=== PATIENT | male | born 2000 | race Caucasian/White ===

== ENCOUNTER 2024-01-24 20:15 | Emergency (ER) | payer MEDICAID ==
[~2024-01-24] VITALS: Ht 170.2 cm; Wt 77.0 kg
[2024-01-24 20:19] VITALS: TEMP 97.9
[2024-01-24 21:20] VITALS: O2SAT 97
[2024-01-24] MEDS: MIDAZOLAM HCL 2 MG/2 ML VIAL IV ONE (21:20)
[2024-01-24 23:31] VITALS: BP 99/66; PULSE 97; RESP 14; O2SAT 96
== END 2024-01-25 01:16 | disposition home or self-care (01) ==
LOC: ER 20:15
DX: F10.129 Alcohol abuse with intoxication, unspecified (principal); Y90.9 Presence of alcohol in blood, level not specified
CPT/HCPCS: 96374; 99283; J2250; Z7610